=== PATIENT | female | born 2005 | race Caucasian/White ===

== ENCOUNTER 2025-02-28 15:19 | Outpatient (AMB) | payer OTHER, SELFPAY ==
--- NOTE | 2025-02-28 15:27 | OBCLNT_ITS ---
Vital Signs 02/28/25 15:30 Height 1.63 m Height Method Stated Weight 69.059 kg Weight Measurement Method Standing Scale BMI 26.1 BP 137/84 H Blood Pressure Source Automatic Cuff Blood Pressure Location Right Upper Arm Position Sitting Respiration 18 Pulse 107 H Pulse Source Monitor Temp 98 F Temp Source Temporal Artery Scan Pulse Oximetry (%) 99 Oxygen Delivery Method Room Air Allergies/Home Meds Allergies & Medications Allergies No Known Allergies Allergy (Verified 02/28/25 15:31) Medication Reconciliation ondansetron 4 mg disintegrating tablet 4 mg PO Q6H PRN nausea and vomiting 30 days #120 tabs 02/28/25 [Rx] vitamin with calcium no.72-iron 27 mg-folic acid 1 mg tablet ( Vitamins Plus Low Iron) 1 tab PO QDAY 90 days #90 tabs 02/28/25 [Rx] Intake Visit Data Collection New Patient or Established: New Patient (never been to [facility]) Reason for Visit:: care for first at 18 weeks gestation, nausea with vomiting Do You Feel Safe at Home: Yes Authorities Contacted: N/A PCP or OBGYN visit in last 3 months: Yes Last menstrual period: 10/24/24 Pain Present Currently: No Smoking Status Smoking Status: Never smoker Questionnaires Covid-19 Vaccine Questionnaire Has patient been vacinated for Covid-19 Have you been vacinated for Covid-19: No PHQ-9 PHQ-2 Over the last 2 weeks, how often have you been bothered by any of the following problems? 1. Little interest or pleasure in doing things: not at all 2. Feeling down, depressed, or hopeless: not at all Total score: 0 Depression screen completed yes Social History Living Situation History Marital Status: Single Lives With: Family Housing: House Tobacco History Smoking Status: Never smoker Alcohol History Alcohol Intake: Former Domestic Abuse History Do You Feel Safe at Home: Yes Past Medical History Past Medical History Have you ever been diagnosed with any of the following: History of Present Illness HPI Narrative Lori Meneses, a 1 para 0 patient, presents for care at 18 weeks and 1 day gestation based on her reported last menstrual period of October 24, 2024. Her estimated due date is July 31, 2025. The patient's primary complaint is nausea with vomiting. She reports feeling n auseous and throwing up, but has not tried any prescription medications for symptom relief. She has attempted to manage her symptoms with [id number] Centrum Morning Sick gummies, which contain domonique. The patient is currently taking vitamins as recommended. This appears to be the patient's first visit for this . She expresses a desire not to know the gender of the baby during genetic screening. Medications and Supplements - Centrum Morning Sick gummies - Contains domonique - vitamins Review of Systems General: Negative for fever, chills, fatigue, muscle aches, appetite or weight change. Gastrointestinal: Positive for nausea and vomiting. OB Ultrasound OB Ultrasound Ultrasound technique: transabdominal Gestational sac assessment: Presence, location, size, shape: - Ultrasound (current visit): - heart rate: 158 bpm (normal) - Gestational age: 14 weeks (based on measurements) - movement observed - anatomy visualized: head, body, hand, legs, knees OB Initial Visit OB Flowsheet OB Flowsheet Initial Weight: Not Recorded Date -?-?-?-?-?-?-?-?-?-?-?-?- EGA Weight Edema CTX Effacement BP Fundal ht Pres Dilation Effacement Station Visit Note Alb Glu FHR Mov 02/28/25 -?-?-?-?-?-?-?-?-?-?-?-?- 18w 1d 69.059 kg 137/84 Lonnie Ashton, 37-year-old at 12w3d gestation (LMP 12/03/2024, SNEHA 09/09/2025), presents to establish care. No CTX/LOF/VB. No LIMON/VS, Epig/RUQ pain. Reports nausea without vomiting. History of chronic hypertension. BP elevated today. Math Interventionist used (Cypriot-speaking only). Ultrasound (02/28/2025): FHR 151 bpm, GA 12w5d (consistent with LMP). Assessment & Plan: at 12w3d with confirmed intrauterin e . History of chronic hypertension. Advanced maternal age. Continue vitamins Prescribe antiemetic for nausea Order labs due to elevated BP Add advanced maternal age to problem lis t Follow-up in 4 weeks for routine care an d BP monitoring Lori Meneses, at 18w1d by LMP (SNEHA: 07/31/2025), presents for initial care. No CTX/LOF/VB. No LIMON/VS, Epig/RUQ pain. Reports nausea with vomiting, using OTC domonique supplement (Centrum Morning Sick gummies). No prescription meds trialed. Taking vitamins. Ultrasound (today): FHR 158 bpm, m ovement visualized. GA measures ~14w0d. Anatomy noted: head, body, limbs. Assessment & Plan: at 18w1d by LMP with ultrasound ave suring ~14w. Intrauterine with dating discrepancy. Continue care Perform additional ultrasounds to refine gestational dating Order labs and genetic screenin g Respect patient?s request to not reveal gender Prescribe antiemetic for nausea/vomiting Continue vitamins Send medications to patient?s preferred pharmacy ([facility]) Review all results at next visit 151 Menstrual History Menstrual reliability: approximate (month known) Flow: heavy Menstrual regularity: regular Monthly: Yes Age at menarche: 13 On control pills at conception: No OB History : 1 Infection History & Risk Evaluation HIV risk evaluation: low risk Hepatitis B risk evaluation: low risk Patient or partner has history of Genital Herpes: No Varicella/chicken pox status: immunized Genetic Screening & History Genetic Screening/Teratology Counseling - Includes patient, baby's father, or anyone in either family with: 1. Patient's age 35 years or older as of estimated date of delivery: No 2. Thalassemia (Frisian, Peruvian, Mediterranean, or Background); MCV less than 80: No 3. Neural Tube Defect (Meningomyelocele, Spina Bifida, or Anencephaly): No 4. Congenital Heart Defect: No 5. Down Syndrome: No 6. Diaz-Sachs (Ashkenazi Samaritan, Cajun, Czech Orange): No 7. Genoveva Disease (Ashkenazi Samaritan): No 8. Familial Dysautonomia (Ashkenazi Samaritan): No 9. Sickle Cell Disease or Trait (): No 10. Hemophilia or other blood disorders: No 11. Muscular Dystrophy: No 12. Cystic Fibrosis: No 13. Harley's Chorea: No 15. Other inherited genetic or chromosomal disorder: No 16. Maternal Metabolic Disorder (EG,TYPE 1 Diabetes, PKU): No 17. Patient or baby's father had a child with defects not listed above: No 18. Recurrent loss or a stillbirth: No 19. Medications (including supplements, vitamins, herbs or otc drugs)/illicit/recreational drugs/alcohol since last menstrual period: No 20. Any other: No Infection History 1. Live with someone with TB or exposed to TB: No 2. Rash or viral illness since last menstrual period: No 3. Hepatitis B,C: No Other (see comments) Source: [employer] Assessment & Plan Diagnosis / Problem List (1) Supervision of high risk , unspecified, second trimester: Status: Acute (2) Uterine size-date discrepancy, second trimester: Status: Acute Plan Meagan Alonso, at 18 weeks 1 day gestation based on LMP, presents for initial care with nausea and vomiting. Intrauterine Assessment: Patient reports LMP of 10/24/2024, placing her at 18 weeks 1 day gestation with SNEHA of 07/31/2025. Ultrasound performed today shows cardiac activity at 158 bpm, which is within normal limits. measurements suggest 14 weeks gestation, creating a discrepancy with LMP-based dating. Plan to average measurements from multiple ultrasounds to determine most accurate gestational age and SNEHA. Plan: - Continue care - Perform additional ultrasounds for more accurate dating - Order labs and genetic screening - Provide patient with lab orders - Review lab and ultrasound results at next visit Nausea and vomiting of Assessment: Patient reports nausea with vomiting. Has tried [id number] Centrum Morning Sick gummies containing domonique, with unclear efficacy. Plan: - Prescribe antiemetic medication - Continue vitamins - Send prescriptions to patient's preferred pharmacy ([facility]) Office Procedures OB Clinic LOC & Office Proc's Nursing/Assessment Patient Status: Initial/New Patient OB Clinic Nursing Assessment: BP Monitoring, Medication Reconciliation, Update PMH in EMR and Vital Signs OB Clinic Coordination of Care: Complex Care and Chronic Disease 1-5, Education Complex Pt/Fam, Consent,records obtained, informed consent, Results/Orders obtained and Staff clarify orders New Patient Charge New Patient Point Assignment: [id number] New Patient Point Charge: [employer]UPATIONAL THER[employer]IST [employer] Level 3 ([id number])
[2025-02-28 15:30] VITALS: BP 137/84; PULSE 107; RESP 18; TEMP 36.6; O2SAT 99; BMI 26.1
== END 2025-02-28 16:11 | disposition home or self-care (01) ==
LOC: HODSOBC 15:19
PROVIDERS: PCP Otolaryngology; Referring Provider Otolaryngology; Supervising Provider Obstetrics & Gynecology; Visit Provider Obstetrics & Gynecology
DX: O09.892 Supervision of other high risk pregnancies, second trimester (principal); Z3A.18 18 weeks gestation of pregnancy; O10.912 Unspecified pre-existing hypertension complicating pregnancy, second trimester; O26.842 Uterine size-date discrepancy, second trimester; O21.9 Vomiting of pregnancy, unspecified
CPT/HCPCS: 99203; G0463

== ENCOUNTER 2025-03-28 13:06 | Outpatient (AMB) | payer OTHER, SELFPAY ==
[2025-03-28 13:08] VITALS: BP 122/83; PULSE 86; RESP 16; TEMP 36.7; O2SAT 99; BMI 27.0
--- NOTE | 2025-03-28 13:08 | OBCLNT_ITS ---
Vital Signs 03/28/25 13:08 Height 1.63 m Height Method Stated Weight 71.838 kg Weight Measurement Method Standing Scale BMI 27.0 BP 122/83 Blood Pressure Source Automatic Cuff Blood Pressure Location Right Upper Arm Position Sitting Respiration 16 Pulse 86 Pulse Source Monitor Temp 98.1 F Temp Source Oral Pulse Oximetry (%) 99 Oxygen Delivery Method Room Air Allergies/Home Meds Allergies & Medications Allergies No Known Allergies Allergy (Verified 03/28/25 13:09) Medication Reconciliation ondansetron 4 mg disintegrating tablet 4 mg PO Q6H PRN nausea and vomiting 30 days #120 tabs 02/28/25 [Rx Confirmed 03/28/25] vitamin with calcium no.72-iron 27 mg-folic acid 1 mg tablet ( Vitamins Plus Low Iron) 1 tab PO QDAY 90 days #90 tabs 02/28/25 [Rx Confirmed 03/28/25] cephalexin 500 mg capsule 500 mg PO QID 5 days #20 caps 03/28/25 [Rx] Intake Visit Data Collection New Patient or Established: Established Patient (seen at [facility] within 3 years) Reason for Visit:: CARE Seen by Clinical Staff ONLY (RN/MA): No Registered Mail Clerk Required: No Do You Feel Safe at Home: Yes Authorities Contacted: N/A PCP or OBGYN visit in last 3 months: Yes Hx Now: Yes Are you currently on any form of Control: No Pain Present Currently: No Pain Scale Used: Edge-Quezada/Numerical Pain scale:: 0 Smoking Status Smoking Status: Never smoker Questionnaires Covid-19 Vaccine Questionnaire Has patient been vacinated for Covid-19 Have you been vacinated for Covid-19: Yes PHQ-9 PHQ-2 Over the last 2 weeks, how often have you been bothered by any of the following problems? 1. Little interest or pleasure in doing things: not at all 2. Feeling down, depressed, or hopeless: not at all Total score: 0 PHQ-9 3. Trouble falling or staying asleep, or sleeping too much: Not at all 4. Feeling tired or having little energy: Not at all 5. Poor appetite or overeating: Not at all 6. Feeling bad about yourself - or that you are a failure or have let yourself or your family down: Not at all 7. Trouble concentrating on things, such as reading the newspaper or watching television: Not at all 8. Moving or speaking so slowly that other people could have noticed? - Or the opposite - being so fidgety or restless that you have been moving around a lot more than usual: not at all 9. Thoughts that you would be better off or of hurting yourself in some way: Not at all Total score: 0 Source: Developed by Drs. Adalid Cavazos, Flores Perkins, Zach Joya and colleagues, with an educational wilfredo from [employer]. Depression screen completed yes Social History Living Situation History Lives With: Family Housing: House Tobacco History Smoking Status: Never smoker Alcohol History Alcohol Intake: Former Domestic Abuse History Do You Feel Safe at Home: Yes History of Present Illness HPI Narrative Lori Meneses, , presents for routine visit at 22 weeks gestation. No contractions, LOF, VB and reports good FM. Denies LIMON, VC, and epigastric pain. LMP 10/24/2024 SNEHA by LMP 07/29/2025 Ultrasound #1 02/28/2025 GA at us 14w0d SNEHA by US #1:0 07/28/2025 Final SNEHA 07/29/2025 Basis for Final SNEHA LMP (with in 7d of 2nd tri US) Previous Section? No Care OB Visit Log OB Flowsheet Initial Weight: Not Recorded Date -?-?-?-?-?-?-?-?-?-?-?-?- EGA Weight BP Alb Glu CTX Pres Fundal ht FHR Mov Dilation Station Effacement Hx Notes Visit Note 02/28/25 -?-?-?-?-?-?-?-?-?-?-?-?- 18w 1d 69.059 kg 137/84 151 Maggie Ashton, 37-year-old at 12w3d gestation (LMP 12/03/2024, SNEHA 09/09/2025), presents to establish care. No CTX/LOF/VB. No LIMON/VS, Epig/RUQ pain. Reports nausea without vomiting. History of chronic hypertension. BP elevated today. Registered Mail Clerk used (Syriac-speaking only). Ultrasound (02/28/2025): FHR 151 bpm, GA 12w5d (consistent with LMP). Assessment & Plan: at 12w3d with confirmed intrauterin e . History of chronic hypertension. Advanced maternal age. Continue vitamins Prescribe antiemetic for nausea Order labs due to elevated BP Add advanced maternal age to problem lis t Follow-up in 4 weeks for routine care an d BP monitoring Lori Meneses, at 18w1d by LMP (SNEHA: 07/31/2025), presents for initial care. No CTX/LOF/VB. No LIMON/VS, Epig/RUQ pain. Reports nausea with vomiting, using OTC domonique supplement (Centr Morning Sick gummies). No prescription meds trialed. Taking vitamins. Ultrasound (today): FHR 158 bpm, m ovement visualized. GA measures ~14w0d. Anatomy noted: head, body, limbs. Assessment & Plan: at 18w1d by LMP with ultrasound ave suring ~14w. Intrauterine with dating discrepancy. Continue care Perform additional ultrasounds to refine gestational dating Order labs and genetic screenin g Respect patient?s request to not reveal gender Prescribe antiemetic for nausea/vomiting Continue vitamins Send medications to patient?s preferred pharmacy ([facility]) Review all results at next visit 03/28/25 -?-?-?-?-?-?-?-?-?-?-?-?- 22w 1d 71.838 kg 122/83 at 22 weeks gestation, presents for routine care. Reports good FM+, no CTX/LOF/VB. Denies LIMON/VC/epigastric pain. Labs show rubella non-immune, urine culture with Streptococcus bovis (25?50K CFU/mL). CBC, urinalysis, and extended genetic panel normal. Bedside US shows appropriate growth, FHT 155 bpm. Plan: Treat UTI (Streptococcus bovis) with ant ibiotics Print gender results in sealed envelope Provide vitamin Rx Await call for anatomy scan with [facility] Continue exercise with modifications (no core compression/sprints) Routine follow-up in 4 weeks /preeclampsia precautions reviewed heart tones: [155 bpm. Laboratory, Imaging, and Diagnostic Test Results - Date: 03/20/2025 (reported on 03/27/2025 ) - Hepatitis B: Negative - Hepatitis C: Negative - RPR: Non-reactive - Rubella: Non-immune - Blood group: O-positive - Antibody screen: Negative - HIV: Non-reactive - Gonorrhea: Negative - Chlamydia: Negative - CBC: Hemoglobin 13 g/dL, Hematocrit 40%, Platelets 260 - Urinalysis: Within normal limits - Urine culture: Streptococcus bovis, 25,000 to 50,000 CFUs/mL - Maternity genome testing: Negative f or all trisomy and common chromosomal testing - SMA testing: Negative - Cystic fibrosis testing: Negative - Bedside ultrasound: heartbeat de tected, general anatomy visualized SNEHA Calculator Estimated Delivery Date Method Current WG Current Estimate 07/31/25 LMP (Certain) 22w 2d Exam General General Appearance: alert, in no apparent distress and healthy appearing Head Head exam: atraumatic Neck Neck exam: Present normal inspection and trachea midline Chest Chest inspection: Present normal inspection and symmetric chest wall rise External exam: Present normal external exam; Absent tenderness Neuro Neurological exam: Present oriented X3 Psych Psychiatric exam: Present normal affect and normal mood Office Procedures OB Clinic LOC & Office Proc's Nursing/Assessment Patient Status: Established Patient OB Clinic Nursing Assessment: Medication Reconciliation, Update PMH in EMR and Vital Signs OB Clinic Coordination of Care: Complex Care and Chronic Disease 1-5, Consent,records obtained, informed consent, Education Simp Pt/Fam, Lab and Im aging orders, Results/Orders obtained and Staff clarify orders Special Needs: Heart tones Established Patient Charge Established Patient Point Assignment: 135 Established Patient Point Charge: EP Level 4 (120-155) Assessment & Plan Diagnosis / Problem List (1) Supervision of high risk , unspecified, second trimester: Status: Acute (2) Uterine size-date discrepancy, second trimester: Status: Acute Plan Problem List - , single intrauterine - Urinary tract infection - Rubella non-immune status Assessment 19-year-old at 22 weeks gestation presenting for routine care. Urine culture positive for Streptococcus bovis, 25,000-50,000 CFU/mL, consistent with urinary tract infection. Patient reports improvement in nausea symptoms. labs show rubella non-immune status, blood type O positive with negative antibody screen. Maternity genome testing negative for trisomies and common chromosomal abnormalities. SMA and cystic fibrosis testing negative. gender consistent with XX karyotype. Limited bedside ultrasound performed, demonstrating appropriate growth and anatomy for gestational age. Plan - Prescribe antibiotics for urinary tract infection (UTI) caused by Streptococcus bovis - Provide vitamin prescription - Schedule follow-up appointment in 4 weeks - Await call from [facility] for high-resolution anatomy/structural survey ultrasound - Print gender results in sealed envelope for patient - Continue current exercise regimen with modifications: - Avoid activities that put pressure on stomach - Avoid high-intensity activities like sprints - Weights, machines, squats, swimming, and cycling are permitted - Print lab results and ultrasound pictures for patient Progress Reviewed gestational age, growth, and heart rate. Planned frequent visits (every 2 weeks until 36 weeks, then weekly). Instructed patient to monitor movements and report decreases immediately. Testing Counseled on routine third-trimester labs per guidelines. Discussed potential need for ultrasound or monitoring based on risk factors. Preeclampsia Precautions Educated on preeclampsia signs: severe headache, vision changes, right upper quadrant pain, sudden swelling. Advised urgent reporting of symptoms and discussed blood pressure monitoring if high risk. Labor Precautions Reviewed labor signs: regular contractions, pelvic pressure, back pain, bleeding, or fluid leakage. Instructed to seek immediate care for these symptoms. Lifestyle and Delivery Preparation Reinforced vitamins, nutrition, and safe activity. Discussed plan, pain management, and . Advised on labor preparation (e.g., hospital bag) and expectations. Psychosocial Support Assessed emotional well-being and offered resources for mental health or parenting support.
== END 2025-03-28 13:56 | disposition home or self-care (01) ==
LOC: HODSOBC 13:06
PROVIDERS: PCP Obstetrics & Gynecology; Referring Provider Obstetrics & Gynecology; Supervising Provider Obstetrics & Gynecology; Visit Provider Obstetrics & Gynecology
DX: O09.612 Supervision of young primigravida, second trimester (principal); O09.892 Supervision of other high risk pregnancies, second trimester; O26.842 Uterine size-date discrepancy, second trimester; Z3A.22 22 weeks gestation of pregnancy; O23.42 Unspecified infection of urinary tract in pregnancy, second trimester; N39.0 Urinary tract infection, site not specified; B95.4 Other streptococcus as the cause of diseases classified elsewhere; Z78.9 Other specified health status
CPT/HCPCS: 99214; G0463

== ENCOUNTER 2025-04-26 10:51 | Outpatient (AMB) | payer MEDICAID, SELFPAY ==
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
[2025-04-26 10:57] VITALS: BP 135/84; PULSE 70; RESP 17; TEMP 36.4; O2SAT 99; BMI 29.5
== END 2025-04-26 11:14 | disposition home or self-care (01) ==
LOC: HODSOBC 10:51
PROVIDERS: PCP Obstetrics & Gynecology; Referring Provider Obstetrics & Gynecology; Supervising Provider Obstetrics & Gynecology; Visit Provider Obstetrics & Gynecology
DX: O09.892 Supervision of other high risk pregnancies, second trimester (principal); O26.842 Uterine size-date discrepancy, second trimester; O99.891 Other specified diseases and conditions complicating pregnancy; R61 Generalized hyperhidrosis; Z3A.26 26 weeks gestation of pregnancy
CPT/HCPCS: 99213; G0463

== ENCOUNTER 2025-07-06 15:04 | Outpatient (AMB) | payer MEDICAID, SELFPAY ==
[2025-07-06 15:39] VITALS: BP 134/93; PULSE 110; RESP 17; TEMP 36.6; O2SAT 98; BMI 32.0
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
== END 2025-07-06 15:51 | disposition home or self-care (01) ==
PROVIDERS: Supervising Provider Obstetrics & Gynecology; Visit Provider Obstetrics & Gynecology
DX: O09.893 Supervision of other high risk pregnancies, third trimester (principal); O26.843 Uterine size-date discrepancy, third trimester; Z3A.36 36 weeks gestation of pregnancy
CPT/HCPCS: 99213; G0463

== ENCOUNTER 2025-07-07 07:30 | Outpatient (CLI) | payer MEDICAID, SELFPAY ==
[2025-07-07 07:30] VITALS: BP 124/70; PULSE 96; RESP 16; RESP 98; TEMP 36.6; BMI 33.0
[2025-07-07 07:42] VITALS: BP 124/70; PULSE 80
--- NOTE | 2025-07-07 07:47 | XR_ITS ---
Examination: Complete OB ultrasound greater than 14 weeks Date and time of exam: July 07, 2025 0811 hours INDICATIONS: Limited care Findings: Viable intrauterine single fetus with single amniotic sac presentation cephalic Cardiac motion 141 BPM Placenta posterior grade 1 Umbilical cord insertion 3 vessel seen spine maternal left Cervix 3.3 cm Ovaries obscured by bowel gas. Composite estimated gestational age based on BPD, head circumference, abdominal circumference, femur length is 32 weeks 2 days Estimated weight 1779 g . Survey of intracranial anatomy, spinal anatomy, abdominal anatomy, four-chamber heart performed with no abnormalities identified. Impression: Viable intrauterine gestation cephalic presentation.
== END 2025-07-07 10:00 | disposition home or self-care (01) ==
LOC: S4S1 07:31 → S4SX 07:32
PROVIDERS: Referring Provider Obstetrics & Gynecology; Visit Provider Obstetrics & Gynecology
DX: O09.33 Supervision of pregnancy with insufficient antenatal care, third trimester (principal); Z3A.36 36 weeks gestation of pregnancy
CPT/HCPCS: 59025; 76805

== ENCOUNTER 2025-07-18 10:36 | Outpatient (AMB) | payer MEDICAID, SELFPAY ==
[2025-07-18 10:57] VITALS: BP 136/86; PULSE 107; RESP 16; TEMP 36.2; O2SAT 98; BMI 32.7
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
== END 2025-07-18 11:25 | disposition home or self-care (01) ==
LOC: HODSOBC 10:36
PROVIDERS: Supervising Provider Obstetrics & Gynecology; Visit Provider Obstetrics & Gynecology
DX: O09.33 Supervision of pregnancy with insufficient antenatal care, third trimester (principal); Z3A.33 33 weeks gestation of pregnancy; O26.843 Uterine size-date discrepancy, third trimester; O09.893 Supervision of other high risk pregnancies, third trimester; Z36.85 Encounter for antenatal screening for Streptococcus B
CPT/HCPCS: 99213; G0463

== ENCOUNTER 2025-08-10 15:08 | Outpatient (AMB) | payer MEDICAID, SELFPAY ==
[2025-08-10 15:18] VITALS: BP 138/86; PULSE 96; RESP 16; TEMP 36.2; O2SAT 98; BMI 34.0
--- NOTE | 2025-08-10 15:18 | AMB.OBVISIT ---
Vital Signs 08/10/25 15:18 Height 1.63 m Height Method Stated Weight 90.435 kg Weight Measurement Method Standing Scale BMI 34.0 BP 138/86 H Blood Pressure Source Automatic Cuff Blood Pressure Location Left Upper Arm Position Sitting Respiration 16 Pulse 96 Pulse Source Monitor Temp 97.2 F Temp Source Oral Pulse Oximetry (%) 98 Oxygen Delivery Method Room Air Allergies/Home Meds Allergies & Medications Allergies No Known Allergies Allergy (Verified 08/14/25 02:05) Medication Reconciliation vitamins with calcium no.72-iron 27 mg-folic acid 1 mg tablet ( Vitamins Plus Low Iron) 1 tab PO QDAY 90 days #90 tabs 02/28/25 [Rx Confirmed 08/14/25] Intake Visit Data Collection New Patient or Established: Established Patient (seen at [facility] within 3 years) Reason for Visit:: OBC Seen by Clinical Staff ONLY (RN/MA): No Mail Superintendent Required: No Do You Feel Safe at Home: Yes Authorities Contacted: N/A PCP or OBGYN visit in last 3 months: Yes Date of Last PCP or OBGYN visit: 07/18/25 Hx Now: Yes Are you currently on any form of Control: No Pain Present Currently: No Pain Scale Used: Edge-Quezada/Numerical Pain scale:: 0 Smoking Status Smoking Status: Never smoker Questionnaires Covid-19 Vaccine Questionnaire Has patient been vacinated for Covid-19 Have you been vacinated for Covid-19: Yes PHQ-9 PHQ-2 Over the last 2 weeks, how often have you been bothered by any of the following problems? 1. Little interest or pleasure in doing things: not at all 2. Feeling down, depressed, or hopeless: not at all Total score: 0 PHQ-9 3. Trouble falling or staying asleep, or sleeping too much: Not at all 4. Feeling tired or having little energy: Not at all 5. Poor appetite or overeating: Not at all 6. Feeling bad about yourself - or that you are a failure or have let yourself or your family down: Not at all 7. Trouble concentrating on things, such as reading the newspaper or watching television: Not at all 8. Moving or speaking so slowly that other people could have noticed? - Or the opposite - being so fidgety or restless that you have been moving around a lot more than usual: not at all 9. Thoughts that you would be better off or of hurting yourself in some way: Not at all Total score: 0 If you checked off any problems, how difficult have these problems made it for you to do your work, take care of things at home, or get along with other people?: not difficult at all Source: Developed by Drs. Adalid Cavazos, Flores Perkins, Zach Joya and colleagues, with an educational wilfredo from [employer]. Depression screen completed yes Social History Living Situation History Marital Status: Single Lives With: Family Housing: House Tobacco History Smoking Status: Never smoker Second Hand Smoke Exposure: No Alcohol History Alcohol Intake: Former Domestic Abuse History Do You Feel Safe at Home: Yes Care OB Visit Log OB Flowsheet Initial Weight: Not Recorded Date <del>?</del> EGA Weight BP Alb Glu CTX Pres Fundal ht FHR Mov Dilation Station Effacement Hx Notes Visit Note 02/28/25 <del>?</del> 13w 6d 69.059 kg 137/84 151 Maggie Ashton, 37-year-old at 12w3d gestation (LMP 12/03/2024, SNEHA 09/09/2025), presents to establish care. No CTX/LOF/VB. No LIMON/VS, Epig/RUQ pain. Reports nausea without vomiting. History of chronic hypertension. BP elevated today. Mail Superintendent used (Egyptian-speaking only). Ultrasound (02/28/2025): FHR 151 bpm, GA 12w5d (consistent with LMP). Assessment & Plan: at 12w3d with confirmed intrauterine . History of chronic hypertension. Advanced maternal age. Continue vitamins Prescribe antiemetic for nausea Order labs due to elevated BP Add advanced maternal age to problem list Follow-up in 4 weeks for routine care and BP monitoring Lori Meneses, at 18w1d by LMP (SNEHA: 07/31/2025), presents for initial care. No CTX/LOF/VB. No LIMON/VS, Epig/RUQ pain. Reports nausea with vomiting, using OTC domonique supplement (Centrum Morning Sick gummies). No prescription meds trialed. Taking vitamins. Ultrasound (today): FHR 158 bpm, movement visualized. GA measures ~14w0d. Anatomy noted: head, body, limbs. Assessment & Plan: at 18w1d by LMP with ultrasound measuring ~14w. Intrauterine with dating discrepancy. Continue care Perform additional ultrasounds to refine gestational dating Order labs and genetic screening Respect patient?s request to not reveal gender Prescribe antiemetic for nausea/vomiting Continue vitamins Send medications to patient?s preferred pharmacy ([facility]) Review all results at next visit 03/28/25 <del>?</del> 17w 6d 71.838 kg 122/83 at 22 weeks gestation, presents for routine care. Reports good FM+, no CTX/LOF/VB. Denies LIMON/VC/epigastric pain. Labs show rubella non-immune, urine culture with Streptococcus bovis (25?50K CFU/mL). CBC, urinalysis, and extended genetic panel normal. Bedside US shows appropriate growth, FHT 155 bpm. Plan: Treat UTI (Streptococcus bovis) with antibiotics Print gender results in sealed envelope Provide vitamin Rx Await call for anatomy scan with MFM Continue exercise with modifications (no core compression/sprints) Routine follow-up in 4 weeks /preeclampsia precautions reviewed heart tones: [155 bpm. Laboratory, Imaging, and Diagnostic Test Results - Date: 03/20/2025 (reported on 03/27/2025) - Hepatitis B: Negative - Hepatitis C: Negative - RPR: Non-reactive - Rubella: Non-immune - Blood group: O-positive - Antibody screen: Negative - HIV: Non-reactive - Gonorrhea: Negative - Chlamydia: Negative - CBC: Hemoglobin 13 g/dL, Hematocrit 40%, Platelets 260 - Urinalysis: Within normal limits - Urine culture: Streptococcus bovis, 25,000 to 50,000 CFUs/mL - Maternity genome testing: Negative for all trisomy and common chromosomal testing - SMA testing: Negative - Cystic fibrosis testing: Negative - Bedside ultrasound: heartbeat detected, general anatomy visualized 04/26/25 <del>?</del> 22w 0d 78.528 kg 135/84 29 159 active Denies CTX, LOF, VB; reports good FM. FHT 159 bpm. Anatomy US at [facility] overdue - needs scheduling. Patient requests Drysol refill for hyperhidrosis schedule anatomy US at [facility], glucose screening test today, prescribe Drysol to [facility] f/u on US appointment status. 07/06/25 <del>?</del> 32w 1d 84.992 kg 134/93 absent cephalic 32 156 active - Lori Meneses is a 20-year-old at ?32 weeks and 3 days gestation presenting for care after a significant gap in appointments. - Last visit was at 22 weeks gestation in April. - Patient reports: - Regular movement - No contractions - No leaking of fluid - Missed several important care milestones: - 27-28 week labs - Certain vaccines (now outside the window for administration) - Entire third trimester visits - Attempted to schedule anatomy scan at another facility: - Experienced difficulties with appointment scheduling and transfer of medical records - Reports being told repeatedly that there were issues with patient identification or incomplete information - States she called the current clinic about the difficulties but did not follow up with in-person appointments Plan - Send patient to labor and delivery for ultrasound to measure baby's weight, fluid levels, and monitor well-being - Order lab tests to catch up on missed screenings - Patient to make follow-up appointment in one week - Patient to continue taking vitamins 07/18/25 <del>?</del> 33w 6d 86.863 kg 136/86 absent cephalic 34 145 active - Recent changes in dating: - Initially due 10/24/2024 based on last menstrual period - Ultrasound on 07/07 showed 4-week discrepancy - New due date set to 08/30/2025, making her 33 weeks and 6 days at that time - Currently considered 34 weeks instead of 37-38 weeks - Patient reports: - Baby is active - No contractions - No leaking of fluid - Recent healthcare interactions: - Sent to labor and delivery for ultrasound at last appointment - GBS culture came back invalid due to delayed processing - Lost to follow-up after 26-week visit, returned in July - Repeat GBS culture today - Await call from Dr. Marinelli's office for second ultrasound appointment (expected within 4-5 days) - Second ultrasound to be performed in [facility] to corroborate and finalize due date - Additional studies including Doppler to measure and evaluate fetus - Patient to call on to check on referral status - Follow-up appointment scheduled for next week - Patient to take copy of ultrasound to next appointment 08/10/25 <del>?</del> 37w 1d 90.435 kg 138/86 absent cephalic 37 155 active - She reports experiencing a lot of pelvic pain as her primary concern. - Patient denies having contractions. - She states she does not really know what contractions are, describing them as when the stomach becomes very tight, relaxed. - She reports the baby is active. - Patient has pending ultrasound approval issues with [facility], which has not yet called her for scheduling. - She lives in [place] and would need to drive for any hospital monitoring. - Patient to go to hospital for monitoring today - Group B Strep culture to be performed by patient using provided swab kit - Follow up appointment scheduled in one week - Ultrasound pending approval from [facility] SNEHA Calculator Estimated Delivery Date Method Current WG Current Estimate 08/30/25 Manual 42w 3d By 3rd trimester ultrasound Other Estimates 07/31/25 LMP (Uncertain) 46w 5d 08/30/25 Ultrasound #1 42w 3d Notes Visit Date: 07/18/25 Last Updated by: Uziel Bonilla MD Laboratory, Imaging, and Diagnostic Test Results - Date: 03/20/2025 - Hepatitis B: Negative - Hepatitis C: Negative - RPR: Non-reactive - Rubella: Non-immune - Blood group: O positive - Antibody screen: Negative - HIV: Non-reactive - Gonorrhea: Negative - Chlamydia: Negative - CBC: Hemoglobin 13 g/dL - Urinalysis: Normal - Urine culture: Streptococcus bovis, 25,000-50,000 CFU/mL - Genome testing: Negative - Spinal muscular atrophy: Negative - Cystic fibrosis: Negative - Bedside ultrasound (02/28/2025): Fetus consistent with 14 weeks gestation, heart rate 158 bpm - Ultrasound (07/07/2025): - measurements consistent with 32 weeks and 2 days gestation - Estimated weight: 70-79th percentile Office Procedures OBC Clinic LOC & Office Proc's Nursing/Assessment Patient Status: Established Patient OB Clinic Nursing Assessment: Medication Reconciliation, Update PMH in EMR and Vital Signs OB Clinic Coordination of Care: Education Complex Pt/Fam, Consent,records obtained, informed consent, Lab and Imaging orders, Results/Orders obtained and Staff clarify orders Special Needs: Heart tones Miscellaneous Interventions: Pelvic Comp w/OB cult Established Patient Charge Established Patient Point Assignment: 130 Established Patient Point Charge: EP Level 4 (120-155) Assessment & Plan Diagnosis / Problem List (1) Limited care in third trimester: Status: Acute Plan Problem List - Pelvic pain in - , unspecified trimester Assessment Patient presents with significant pelvic pain without contractions. heart rate is normal at 180 bpm with active movement reported. Patient reports uncertainty about recognizing contractions, describing stomach tightening and relaxation. Insurance authorization issues with [employer] preventing ultrasound approval. Group B Strep culture collection performed via patient self-swab technique. Plan - Patient to go to hospital for monitoring today - Group B Strep culture to be performed by patient using provided swab kit - Follow up appointment scheduled in one week - Ultrasound pending approval from [employer] insurance 1. Progress Reviewed gestational age, growth, and heart rate. heart rate noted as 180 bpm, which is normal. Patient reports significant pelvic pain. Planned frequent visits (every 2 weeks until 36 weeks, then weekly). Follow-up scheduled in one week. 2. Instructed patient to monitor movements and report decreases immediately. Patient reports baby is active. 3. Testing Counseled on routine third-trimester labs per guidelines. Culture swab obtained during visit with patient education on self-collection technique. Discussed potential need for ultrasound or monitoring based on risk factors. Ultrasound pending approval from [employer] insurance. Hospital monitoring arranged for today due to pelvic pain concerns. 4. Preeclampsia Precaution Educated on preeclampsia signs: severe headache, vision changes, right upper quadrant pain, sudden swelling. Advised urgent reporting of symptoms and discussed blood pressure monitoring if high risk. 5. Labor Precautions Reviewed labor signs: regular contractions, pelvic pressure, back pain, bleeding, or fluid leakage. Patient educated on contraction identification (tightening and relaxing of abdomen). Instructed to seek immediate care for these symptoms. 6. Lifestyle and Delivery Preparation Reinforced vitamins, nutrition, and safe activity. Discussed plan, pain management, and . Advised on labor preparation (e.g., hospital bag) and expectations. 7. Psychosocial Support Assessed emotional well-being and offered resources for mental health or parenting support.
== END 2025-08-10 15:31 | disposition home or self-care (01) ==
LOC: HODSOBC 15:08
PROVIDERS: Supervising Provider Obstetrics & Gynecology; Visit Provider Obstetrics & Gynecology
DX: O09.33 Supervision of pregnancy with insufficient antenatal care, third trimester (principal); O09.893 Supervision of other high risk pregnancies, third trimester; O99.891 Other specified diseases and conditions complicating pregnancy; R10.20 Pelvic and perineal pain unspecified side; Z3A.37 37 weeks gestation of pregnancy; Z36.85 Encounter for antenatal screening for Streptococcus B
CPT/HCPCS: 99214; G0463

== ENCOUNTER 2025-08-10 17:34 | Observation (INO) | payer MEDICAID, SELFPAY ==
[2025-08-10 17:38] VITALS: BP 128/82; PULSE 87
[2025-08-10 17:40] VITALS: PULSE 89; O2SAT 100
[2025-08-10 17:45] VITALS: BP 128/82; PULSE 103; PULSE 91; RESP 16; RESP 97; TEMP 36.4; O2SAT 100; BMI 34.2
--- NOTE | 2025-08-10 17:45 | XR_ITS ---
Examination: Biophysical profile, ultrasound Date and time of exam: August 10, 2025, 1825 hours INDICATIONS: Poor care Technique: Multiple transabdominal sonographic images of the pelvis abdomen obtained. Attention is directed to the breathing movement, gross body movement, amniotic fluid volume and tone. Findings: Amniotic fluid index 10.3 cm Total biophysical profile is 8 of 8. breathing movement is 2. Gross body movement is 2. tone is 2. Qualitative amniotic fluid volume is 2 Impression: Biophysical profile is 8 of 8.
== END 2025-08-10 21:38 | disposition home or self-care (01) ==
PROVIDERS: Admitting Provider Obstetrics & Gynecology; Visit Provider Obstetrics & Gynecology
DX: Z34.03 Encounter for supervision of normal first pregnancy, third trimester (principal); Z3A.37 37 weeks gestation of pregnancy
CPT/HCPCS: 59025; 59899; 76819

== ENCOUNTER 2025-08-11 23:36 | Observation (INO) | payer MEDICAID, SELFPAY ==
[2025-08-11 23:43] VITALS: BP 144/83; PULSE 98; RESP 16; RESP 99; TEMP 36.7; BMI 34.7
[2025-08-11 23:54] VITALS: BP 144/83; PULSE 110; PULSE 98; O2SAT 99
[2025-08-11 23:59] VITALS: PULSE 94; O2SAT 98
[2025-08-12] VITALS (8 sets, daily range): BP systolic 106–132; BP diastolic 59–77; PULSE 78–98; O2SAT 99
== END 2025-08-12 02:06 | disposition home or self-care (01) ==
PROVIDERS: Admitting Provider Obstetrics & Gynecology; Visit Provider Obstetrics & Gynecology
DX: O47.1 False labor at or after 37 completed weeks of gestation (principal); Z3A.37 37 weeks gestation of pregnancy
CPT/HCPCS: 59899

== ENCOUNTER 2025-08-14 01:24 | Inpatient (IN) | payer MEDICAID, SELFPAY ==
[2025-08-14] VITALS (30 sets, daily range): BP systolic 105–154; BP diastolic 64–97; PULSE 81–167; RESP 16–99; TEMP 36.6–37.1; O2SAT 88–100; BMI 33.8
[2025-08-14] MEDS: RINGERS LACTATED 1000 ML 1,000 ML 125 ML IV (02:19)
[2025-08-14] MEDS: Ampicillin Inj 2,000 MG in SODIUM CHLORIDE 0.9% (POP) 100 ML 200 MG IV (02:20)
[2025-08-14 02:47] LABS: Basophils # (Auto) 0.0 Thou/mm3 (0.0-0.2); Basophils % (Auto) 0 % (0-2.5); Eosinophils # (Auto) 0.0 Thou/mm3 (0.0-0.5); Eosinophils % (Auto) 0 % (0-10); Hematocrit 36.8 % (36.0-46.0); Hemoglobin 12.3 g/dL (12.0-16.0); Immature Granulocytes Auto 0.06 Thou/mm3 (0.00-0.00); Lymphocytes # (Auto) 1.5 Thou/mm3 (1.0-4.8); Lymphocytes % (Auto) 10 % (10-50); Mean Corpuscular HGB Conc 33.4 g/dl (31.0-37.0); Mean Corpuscular Hemoglobin 28.1 pg (25.0-35.0); Mean Corpuscular Volume 84 fL (80-100); Monocytes # (Auto) 0.7 Thou/mm3 (0.0-0.8); Monocytes % (Auto) 5 % (0-12); Neutrophils # (Auto) 13.6 Thou/mm3 (1.8-7.7); Neutrophils % (Auto) 85 % (37-80); Nucleated Red Blood Cell # 0.00 Thou/mm3 (0.00-0.00); Nucleated Red Blood Cell % 0 /100 WBC (0); Platelet Count 276 Thou/mm3 (140-440); RDW Standard Deviation 38.0 fL (36.4-46.3); Red Blood Count 4.38 Miln/mm3 (4.00-5.20); White Blood Count 15.9 Thou/mm3 (4.5-11.0)
[2025-08-14 03:28] LABS: Syphilis Nonreactive (Nonreactive)
[2025-08-14] MEDS: fentaNYL CIT INJ 50 mCg/ML AMP 2ML 100 MCG IVP (03:29)
[2025-08-14 03:36] LABS: Alanine Aminotransferase < 7 U/L (10-49); Albumin, Serum 4.1 gm/dL (3.5-5.0); Albumin/Globulin Ratio 1.5 (1.2-2.2); Alkaline Phosphatase 195 U/L (46-116); Anion Gap 15 (7-16); Aspartate Amino Transferase 15 U/L (0-34); BUN/Creatinine Ratio 7 Ratio (12-20); Bilirubin,Total 0.5 mg/dL (0.3-1.2); Blood Urea Nitrogen < 5 mg/dL (9-23); Calcium 9.5 mg/dL (8.3-10.6); Calcium (Corrected) 9.5 mg/dL (8.5-10.1); Carbon Dioxide 21.2 mMol/L (20.0-31.0); Chloride 108 mMol/L (98-107); Creatinine (Component) 0.7 mg/dL (0.6-1.3); Estimated Creatinine Clearance 138.9 mL/min (>60); Globulin 2.7 gm/dL (2.3-3.5); Glucose 94 mg/dL (74-106); Osmolality,Calculated 284 (275-295); Potassium 3.8 mMol/L (3.4-5.1); Sodium 144 mMol/L (136-145); Total Protein 6.8 gm/dL (5.7-8.2); eGFR > 60 See Note
--- NOTE | 2025-08-14 05:35 | ESHP_ITS ---
Documentation for date of: 08/14/25 OB Labor/Induct. HPI History of Present Illness Chief complaint: painful, regular ctx : 1 Para: 0 Term pregnancies: 0 pregnancies: 0 Living children: 0 History of Abortions: Spontaneous and Elective: 0 History of Vaginal deliveries: 0 History of sections: No History of : No SNEHA: 08/30/25 Gestational Age (weeks): 37 Gestational Age (days): 5 History of present illness: Patient presents for regular, painful ctx. No LOF. No vaginal bleeding. Normal movement. No fevers/chills. History of Present Dating criteria: based on 2nd trimester US only (dates changed by 14 week ultrasound with 4 week discrepancy) Adequate Care: No Narrative: Insufficient care: care started at 14 weeks, 10 week gap in care from 22-32 weeks Current BMI 33.9 Labs Maternal Blood Type: O Pos Labs: Negative: RPR, Hepatitis B, Rubella Titre, HIV, Chlamydia and Gonorrhea and Unknown: Herpes Type 1, Herpes Type 2, Group Beta Strep and Covid- 19 Narrative: - Date: 03/20/2025 - Hepatitis B: Negative - Hepatitis C: Negative - RPR: Non-reactive - Rubella: Non-immune - Blood group: O positive - Antibody screen: Negative - HIV: Non-reactive - Gonorrhea: Negative - Chlamydia: Negative - CBC: Hemoglobin 13 g/dL - Urinalysis: Normal - Urine culture: Streptococcus bovis, 25,000-50,000 CFU/mL - Genome testing: Negative - Spinal muscular atrophy: Negative - Cystic fibrosis: Negative Review of Systems Review of Systems Narrative Review of Systems: Review of Systems Systems Reviewed: All systems reviewed, normal except as documented Constitutional Constitutional: Denies body ache(s), Denies chills, Denies fever(s) and Denies headache(s) ENT Ears, Nose, Mouth, and Throat: Denies headache(s) and Denies vertigo Cardiovascular Cardiovascular: Denies chest pain, Denies palpitations, Denies dyspnea and Denies syncope Respiratory Respiratory: Denies cough, Denies dyspnea Gastrointestinal Gastrointestinal: Denies nausea and Denies vomiting Neurologic Neurologic: Denies convulsions, Denies headache(s), Denies other visual disturbances, Denies syncope and Denies vertigo Past Medical History Family History OTHER FAMILY HX: non-contributory Surgical History SURGICAL: Negative Section Social History SOCIAL: No tobacco/ETOH/illicit drug use Past Medical History Comments PMH COMMENT: Current BMI 33.9 Meds Home Medications and Allergies Allergies Allergy/AdvReac Type Severity Reaction Status Date / Time No Known Allergies Allergy Verified 08/14/25 02:05 OB Exam Physical Exam Vital signs: Temp Pulse Resp BP Pulse Ox 98.0 F 102 H 18 137/77 H 100 08/14/25 02:30 08/14/25 05:31 08/14/25 02:30 08/14/25 05:31 08/14/25 05:09 Narrative: General: well developed, well nourished, no acute distress, conversant Cardiac: normal heart rate Lungs: breathing without distress Abdomen: soft, gravid, non-tender, no rebound or guarding Extremities: trace edema BLE Detailed Labor and Delivery Exam Dilation (cm): 7 Effacement (%): 80 Cervix position: anterior station: -2 Consistency: soft Presentation: Vertex Membranes: intact monitor accelerations: 15x15 monitor decelerations: None intermediate teacher variability: Moderate (11-25) Contraction frequency (min): q3-4min OB Results Labs 08/14/25 02:25 08/14/25 02:18 Labs: Short CBC 08/14/25 Range/Units 02:25 WBC 15.9 H (4.5-11.0) Thou/mm3 Hgb 12.3 (12.0-16.0) g/dL Hct 36.8 (36.0-46.0) % Plt Count 276 (140-440) Thou/mm3 BMP 08/14/25 02:18 Sodium 144 Potassium 3.8 Chloride 108 H Carbon Dioxide 21.2 BUN < 5 L Creatinine 0.7 Glucose 94 Calcium 9.5 Liver Function 08/14/25 Range/Units 02:18 Total Bilirubin 0.5 (0.3-1.2) mg/dL AST 15 (0-34) U/L ALT < 7 L (10-49) U/L Alkaline Phosphatase 195 H (46-116) U/L Albumin 4.1 (3.5-5.0) gm/dL OB Assessment & Plan Assessment and Plan (1) Active labor at term: Status: Acute Assessment and plan: Lori is a 20yo with SIUP at 37&5wk presenting in active labor. Regular/painful contractions, SCE: 7/80/-2. New mild range bp's, benign exam. Reassuring assessment. PMhx/ complicated by: -Insufficient care with Dr. Bonilla: care started at 14 weeks, 10 week gap in care from 22-32 weeks -Current BMI 33.9 Plan: -Admit to L&D -Establish IV, routine labs and also PIH labs -CEFM -Clear liquid diet -Clinic Lpn/consent re: -GBS status: unknown. Ampicillin per protocol. -Anticipate -Safe to proceed (2) 37 weeks gestation of : Status: Acute (3) Limited care in third trimester: Status: Acute (4) Supervision of high risk , unspecified, third trimester: Status: Acute
[2025-08-14] MEDS: LIDOCAINE HCL 1% 20 ML VIAL INFL (05:36)
[2025-08-14] MEDS: OXYTOCIN in NS 20 units 20 UNIT/1,000 ML BAG 125 UNIT IV (05:36)
--- NOTE | 2025-08-14 05:47 | PD.LDDELS ---
Data ([facility]) Data Hx Section: No : 1 Term: 0 : 0 Livin Abortions: Spontaneous & Theraputic: 0 Delivery Data ([facility]) Labor Data Initiation of labor: Spontaneous Induction/Augmentation Agent: None ROM date: 08/14/25 ROM time: 04:40 Amniotic membrane rupture type: Spontaneous Amniotic fluid description: Clear Delivery Data Onset of labor date: 08/13/25 Onset of labor time: 08:00 Complete dilation date: 08/14/25 Complete dilation time: 04:50 delivery date: 08/14/25 delivery time: 05:09 Placenta delivery date: 08/14/25 Placenta delivery time: 05:14 Stage 1 total time: Labor - Stage 1 Duration 20 hours and 50 minutes Delivered by: Dr Watson Delivery nurse: Augustine Deluna nurse: Mariana SCHMIDT Wheel Mill Operator at delivery: No Support person(s) at delivery: Sister and FOB Other staff at delivery: Norha SCHMIDTmultiple cut off saw operator Method Delivery method: Normal Vaginal Delivery Presentation: Vertex Anesthesia Type Anesthesia Type: Local Placenta Placenta delivery description: Spontaneous Cord blood sent to lab: Yes cord blood collection: Cord Blood Type Episiotomy Episiotomy description: None EBL Estimated blood loss (ml): 150 Umbilical Cord cord description: 3 Vessels Additional Procedures Lori is a 20yo [id number] s/p uncomplicated at 37&5wk after presenting in active labor, delivering at 0509 on 08/14/2025. On presentation, SCE was 7cm. She progressed without augmentation to C/C/+2 at which point she began pushing. She declined epidural. With good maternal pushing efforts, infant's head delivered OA and restituted MILE. Left anterior shoulder delivered easily followed by posterior shoulder and corpus. Infant had spontaneous cry and was vigorous. Apgars 9/9. placed on maternal abdomen where nose/mouth were suctioned and dried/stimulated. After approximately 2 minutes, cord was clamped x2 and cut by FOB. Cord blood collected for typing. With fundal massage and cord traction, placenta delivered spontaneously and intact with 3 vessel centrally inserted cord. Bimanual massage performed and IV pitocin given per protocol with fundus then firm at u-2cm and hemostasis noted. Sweep just within cervix/MENDEZ performed which retrieved a very small amount of clot. Inspection of perineum and vagina revealed right labial laceration which was repaired in routine fashion with 2-0 vicryl after anesthetizing with 1% lidocaine- total reapproximation and hemostasis achieved. Fundus remained firm throughout. All counts correct x2. Mom and infant were doing well when I left the room. Almita Watson MD Complications Complications: none [place] Data ([facility]) [place] Data order: 1 [place]'s gender: Female Identification band number: [id number] 1 minute: 9 5 minutes: 9
[2025-08-14 05:57] LABS: Collection Type, Urine Clean Catch
[2025-08-14 06:08] LABS: Amphetamine/Metham Scrn,Ur OB Negative (Negative); Benzoylecgonine Screen, Ur OB Negative (Negative); Opiate Screen,Urine OB Negative (Negative); THC Screen,Urine OB Negative (Negative)
[2025-08-14 06:09] LABS: Creatinine,Random Urine 120 mg/dL (30-125); Protein Total, Random Urine 56 mg/dL (1-14)
[2025-08-14] MEDS: IBUPROFEN TAB 400 MG TABLET 800 MG PO ×3 (06:10→19:44)
[2025-08-14 06:14] LABS: Bilirubin,Urine Negative (Negative); Blood,Urine 1+ (Negative); Clarity,Urine Clear (Clear/Hazy); Color,Urine Lt-Yellow (Lt Yel-Yel); Glucose, Urine Negative (Negative); Ketones,Urine 4+ (Negative); Leukocyte Esterase,Urine Negative (Negative); Nitrite,Urine Negative (Negative); PH,Urine 6.5 (5.0-7.0); Protein,Urine 1+ (Neg - Trace); RBC,Urine 15 /hpf (0-3); Specific Gravity,Urine 1.025 (1.001-1.035); Squamous Epithelial Cell,Urine 1 /hpf (0-5); Urobilinogen,Urine Negative mg/dL (0.0-1.0); WBC,Urine 4 /hpf (0-5)
[2025-08-14] MEDS: DOCUSATE SOD 100 MG CAPSULE PO ×2 (09:24→20:34)
[2025-08-14 11:48] LABS: Basophils # (Auto) 0.0 Thou/mm3 (0.0-0.2); Basophils % (Auto) 0 % (0-2.5); Eosinophils # (Auto) 0.0 Thou/mm3 (0.0-0.5); Eosinophils % (Auto) 0 % (0-10); Hematocrit 31.0 % (36.0-46.0); Hemoglobin 10.5 g/dL (12.0-16.0); Immature Granulocytes Auto 0.09 Thou/mm3 (0.00-0.00); Lymphocytes # (Auto) 1.4 Thou/mm3 (1.0-4.8); Lymphocytes % (Auto) 8 % (10-50); Mean Corpuscular HGB Conc 33.9 g/dl (31.0-37.0); Mean Corpuscular Hemoglobin 28.4 pg (25.0-35.0); Mean Corpuscular Volume 84 fL (80-100); Monocytes # (Auto) 1.4 Thou/mm3 (0.0-0.8); Monocytes % (Auto) 8 % (0-12); Neutrophils # (Auto) 15.5 Thou/mm3 (1.8-7.7); Neutrophils % (Auto) 84 % (37-80); Nucleated Red Blood Cell # 0.00 Thou/mm3 (0.00-0.00); Nucleated Red Blood Cell % 0 /100 WBC (0); Platelet Count 252 Thou/mm3 (140-440); RDW Standard Deviation 37.9 fL (36.4-46.3); Red Blood Count 3.70 Miln/mm3 (4.00-5.20); White Blood Count 18.5 Thou/mm3 (4.5-11.0)
--- NOTE | 2025-08-14 13:46 | PC.SS ---
SAP DATA ARCHITECT conducted bedside contact with the patient to address nursing referral indicating patient was late to care.? SAP DATA ARCHITECT introduced self and role.? Present with patient was Mitesh CHOI.? Patient gave consent for FOB to be present during discussion.? SAP DATA ARCHITECT discussed basis of referral.? Patient confirmed LTC at 18 weeks.? Per patient, due to reduced number of providers in local area, unable to secure OB appointment until after 12 week timeline.? OB appointment conducted with Dr. Bonilla.? Patient stated consistency with OB appointments.? Infant, Honey; is the patient?s first child.? Infant delivered naturally.? Patient plans on bottle feeding infant.? Patient is aligned with WIC and SNAP.? Patient is no aligned with TANF.? Patient denies history of alcohol/drug abuse.? Patient denies CWS intervention.? Patient denies episodes of domestic violence.? Patient reports history of anxiety.? Per patient not prescribed medication and level of anxiety is not impairing daily functioning.? FOB reports no concern with patient?s emotional status.? Patient denies current intent/plan of SI/HI.? SAP DATA ARCHITECT discussed with patient post- depression.? Discussed with patient strategies to decrease risk of post- to include: obtaining enough sleep, realistic expectations of parenthood, healthy diet and possession of support system.? Patient has access to appropriate supplies and equipment; to include a car seat.? FOB will provide transportation upon discharge.? Patient describes possessing support system consisting of FOB, parents and extended family.? SAP DATA ARCHITECT provided the patient with community resources to include [employer] and Warm Line.? No further intervention required at this time, social work assistant will be available to address any further concerns.? SAP DATA ARCHITECT updated bedside nurse.?
--- NOTE | 2025-08-14 19:16 | PC.NURSE ---
Pt is complaining of pain and asking for some pain medicine. Inform pt Motrin is due at 2214H, but she can have some Tylenol. Pt refused Tylenol stating that it's not helping with her pain. Notify MD Watson of pt's complaining. As per , okay to give early dose of Motrin.
[2025-08-15 04:00] VITALS: BP 109/63; PULSE 73; RESP 16; TEMP 36.7; O2SAT 97
[2025-08-15] MEDS: IBUPROFEN TAB 400 MG TABLET 800 MG PO (04:09)
[2025-08-15 07:34] VITALS: BP 114/80; PULSE 78; RESP 15; TEMP 36.6; O2SAT 99
[2025-08-15] MEDS: DOCUSATE SOD 100 MG CAPSULE PO (07:43)
[2025-08-15] MEDS: ACETAMINOPHEN 325 MG TABLET 650 MG PO (09:55)
[2025-08-15 12:00] VITALS: BP 110/72; PULSE 92; RESP 17; TEMP 36.8; O2SAT 96
--- NOTE | 2025-08-15 12:30 | PD.LDDS ---
DS: Providers Provider Date of admission: 08/14/25 02:02 Primary care physician: Physician No Primary/Family Admitting Provider: Almita Watson MD Attending Provider on Admission: Uziel Bonilla MD Consults: 08/14/25 05:30 Referral Routine Comment: Attending Provider on DC: Almita Watson MD Discharging Provider: Almita Watson MD DS: Diagnosis Discharge Diagnosis (1) care and examination immediately after delivery: Status: Acute (2) Pre-eclampsia affecting childbirth: Status: Acute (3) Active labor at term: Status: Acute (4) 37 weeks gestation of : Status: Acute (5) Limited care in third trimester: Status: Acute Problem List Completed Was Problem List Reviewed/Reconciled?: Yes Summary/Hosp Course Brief History: Lori is a 20yo [id number] s/p uncomplicated at 37&5wk after presenting in active labor, delivering at 0509 on 08/14/2025. Doing well on PPD1. She had mild range bp's during and immediately after delivery which fully resolved, but urine p:c was performed which was elevated at 0.46. Other PIH labs were normal. She remains asymptomatic for pre-eclampsia. We discussed diagnosis of pre-eclampsia withOUT severe features and I explained that she will need to take aspirin during next . She has had an otherwise uncomplicated course, meeting all milestones and feels ready for discharge home. She is ambulating without lightheadedness, tolerating regular diet no n/v, spontaneously voiding without issue. She has no chest pain or shortness of breath. No fevers or chills. Minimal, appropriate discomfort. Vitals normal, benign exam. Hemodynamically stable with no evidence of infection. PP Hgb 10.5 from 12.3. Peripartum Data Delivery Method: Normal Vaginal Delivery Episiotomy Description: None Status at Discharge Functional status at discharge: independent ambulation Overall status at discharge: patient is back to baseline Time Spent with Patient Time attestation: Total time spent providing and/or coordinating discharge services: Exam Vital Signs Temp Pulse Resp BP Pulse Ox O2 Del Method 98.3 F 92 17 110/72 96 Room Air 08/15/25 12:00 08/15/25 12:00 08/15/25 12:00 08/15/25 12:00 08/15/25 12:00 08/15/25 12:00 Narrative Exam General: well developed, well nourished, no acute distress, conversant Cardiac: normal heart rate Lungs: breathing without distress Abdomen: soft, post-gravid, non-tender, no rebound or guarding, Fundus firm at u-3cm. Extremities: no pain with palpation of calves, trace edema of BLE Discharge Plan Plan Patient Disposition: HOME (Self Care) Patient condition on transfer: Stable Prescriptions/Referrals Prescriptions/Med Rec: New docusate sodium 100 mg Capsule 100 mg PO BID 10 Days Qty: 20 0RF ibuprofen 800 mg tablet 800 mg PO Q8H PRN (Reason: See Comments) 10 Days Qty: 20 0RF Continued Vitamin Plus Low Iron 27 mg iron- 1 mg tablet 1 tab PO QDAY 90 Days Qty: 90 6RF Referrals: No Primary/Family,Physician [Primary Care Provider] Patient/Caregiver Discharge Instructions Discharge Activity: activity as tolerated and other Other Discharge Activity Instructions:: vaginal rest and no heavy lifting more than 10 pounds for 6 weeks Other Discharge Diet Instructions: regular Education Materials: After a Vaginal , Understanding Blues, Breast Care After Print Language: Bulgarian Activity Restrictions/Additional Instructions: follow up with Dr. Bonilla in 2 weeks for blood pressure check, call clinic for appointment Stand Alone Forms: Sara Award Info., Patient Portal Info Letter Discharge Order Discharge Orders: Discharge (Routine); Ordered 08/15/25 Ordered By: Almita Watson Planned Discharge Date 08/15/25
== END 2025-08-15 14:20 | disposition home or self-care (01) | DRG 560 ==
LOC: S4SX 05:34 → S4NX 07:34
PROVIDERS: Admitting Provider Obstetrics & Gynecology; Visit Provider Obstetrics & Gynecology
DX: O14.94 Unspecified pre-eclampsia, complicating childbirth (principal); O70.0 First degree perineal laceration during delivery; Z37.0 Single live birth; Z3A.37 37 weeks gestation of pregnancy
CPT/HCPCS: 36415; 59025; 80053; 80307; 81001; 82570; 84156; 85025; 86780; 86850; 86900; 86901; J0290; J2590; J3010; J3490; J7120; A9270